=== PATIENT | female | born 1985 | race Caucasian/White ===

== ENCOUNTER 2022-10-20 15:59 | Inpatient (IN) | payer OTHER ==
[~2022-10-20] VITALS: Ht 162.6 cm; Wt 52.9 kg
[2022-10-20] VITALS (13 sets, daily range): BP systolic 109–135; BP diastolic 69–78
[2022-10-20] MEDS ORDERED: ASPirin-EC 81 mg tab PO ONE (16:15)
[2022-10-20] MEDS ORDERED: ASPirin 81 mg TAB ONE (16:19)
[2022-10-20] MEDS ORDERED: LIDOCAINE 2%HCL (LOCAL ANESTH.) INJ 20ML MDV ONE (16:42)
[2022-10-20] MEDS ORDERED: ANGIOMAX 250 MG VIAL IV ONE (16:48)
[2022-10-20] MEDS ORDERED: fentaNYL CITRATE 100 MCG/2 ML VL ONE (16:48)
[2022-10-20] MEDS ORDERED: SODIUM CHL 0.9% 50 ML ONE (16:49)
[2022-10-20] MEDS ORDERED: MIDAZOLAM HCL 2MG/2ML 2ml VIAL (1mg/ml) ONE (16:49)
[2022-10-20 16:53] LABS: Basophils # (auto) 0 10 ^3/uL (0-0.2); Basophils % (auto) 0.3 % (0.0-2.0); Eosinophils # (auto) 0 10 ^3/uL (0-0.8); Eosinophils % (auto) 0.3 % (0.0-7.0); Hemoglobin 13.5 g/dL (12.2-16.2); Lymphocytes # (auto) 1.7 10 ^3/uL (0.4-5.4); Lymphocytes % (auto) 18.6 % (10.0-50.0); Mean Corpuscular Hemoglobin 26.4 pg (28.0-32.0); Mean Corpuscular Volume 80.2 fL (80.0-100.0); Monocytes # (auto) 0.5 10 ^3/uL (0-1.3); Monocytes % (auto) 5.7 % (0.0-12.0); Neutrophils # (auto) 6.9 10 ^3/uL (1.6-8.6); Neutrophils % (auto) 75.1 % (37.0-80.0); Red Blood Cells 5.12 10^6/uL (4.0-5.20); Red Cell Distribution Width 12.6 % (11.8-14.3); White Blood Cell 9.2 10^3/uL (4.4-10.8)
[2022-10-20 16:56] LABS: Calcium 9.2 mg/dL (8.5-10.1); Magnesium 2.2 mg/dL (1.6-2.6); Potassium 3.8 mmol/L (3.5-5.1)
[2022-10-20 17:00] LABS: BUN/Creatinine Ratio 12.7 (10.0-20.0); Bilirubin, Total 1.1 mg/dL (0.2-1.0); Total Protein 7.6 g/dL (6.4-8.2)
[2022-10-20] MEDS ORDERED: VERAPAMIL 2.5MG/ML INJ 2ML VIAL IV ONE (17:01)
[2022-10-20] MEDS ORDERED: HEPARIN SODIUM (PORCINE) 5000 UNITS/ML 1ML VIAL ONE (17:01)
[2022-10-20 17:33] LABS: Cholesterol 137 mg/dL (< 200)
[2022-10-20 17:36] LABS: HDL Cholesterol 43 mg/dL (40-59); LDL Cholesterol 85 mg/dL (< 100); Triglycerides 138 mg/dL (< 150)
[2022-10-20 17:44] LABS: INR 0.99 (0.9-1.15); Partial Thromboplastin Time 24.3 sec (24.6-33.4)
[2022-10-20] MEDS ORDERED: MORPHINE SULFATE INJ 2 MG/ml SYRG IV PRN (17:45)
[2022-10-20] MEDS ORDERED: DOCUSATE SOD 100 MG CAP PO PRN (17:45)
[2022-10-20] MEDS ORDERED: HYDROcodone-ACET 5/325MG TAB PO PRN (17:45)
[2022-10-20] MEDS ORDERED: ONDANSETRON HCL 4 MG/2 ML VIAL IV PRN (17:45)
[2022-10-20] MEDS ORDERED: ACETAMINOPHEN 325 MG TAB PO PRN (17:45)
[2022-10-20] MEDS ORDERED: NITROGLYCERIN 0.4 MG SL TAB SL PRN (17:45)
[2022-10-20] MEDS: SODIUM CHLOR 0.9% PF (SALINE LOCK) 10ML VIAL/SYR IV SCH (23:09)
[2022-10-21 00:26] VITALS: BP 128/66
[2022-10-21 05:00] VITALS: BP 120/63
[2022-10-21] MEDS: SODIUM CHLOR 0.9% PF (SALINE LOCK) 10ML VIAL/SYR IV SCH ×2 (06:00→13:03)
[2022-10-21 06:41] LABS: Basophils # (auto) 0 10 ^3/uL (0-0.2); Eosinophils # (auto) 0 10 ^3/uL (0-0.8); Eosinophils % (auto) 0.6 % (0.0-7.0); Lymphocytes # (auto) 2.3 10 ^3/uL (0.4-5.4); Monocytes # (auto) 0.5 10 ^3/uL (0-1.3); Neutrophils # (auto) 4.6 10 ^3/uL (1.6-8.6); White Blood Cell 7.5 10^3/uL (4.4-10.8)
[2022-10-21 06:43] LABS: Basophils % (auto) 0.3 % (0.0-2.0); Hematocrit 39.9 % (36.0-46.0); Hemoglobin 13.1 g/dL (12.2-16.2); Lymphocytes % (auto) 31.3 % (10.0-50.0); Mean Corpuscular Hemoglobin 26.3 pg (28.0-32.0); Mean Corpuscular Hgb Conc. 32.9 g/dL (32.0-36.0); Monocytes % (auto) 6.9 % (0.0-12.0); Neutrophils % (auto) 60.9 % (37.0-80.0); Red Blood Cells 4.98 10^6/uL (4.0-5.20); Red Cell Distribution Width 12.6 % (11.8-14.3)
[2022-10-21 07:32] LABS: Albumin 3.4 g/dL (3.4-5.0); Calcium 8.3 mg/dL (8.5-10.1); Potassium 3.7 mmol/L (3.5-5.1)
[2022-10-21 07:36] LABS: BUN/Creatinine Ratio 15.3 (10.0-20.0); Bilirubin, Total 1.1 mg/dL (0.2-1.0); Total Protein 7.1 g/dL (6.4-8.2)
[2022-10-21 09:00] VITALS: BP 115/66
[2022-10-21 13:00] VITALS: BP 118/72
[2022-10-24 16:10] LABS: Hepatitis C Antibody Negative (Negative)
== END 2022-10-21 13:45 | disposition home or self-care (01) | DRG 282 ==
LOC: ER 15:59 → EDBD 15:59 → TELE 17:34 → TELE-CENTR 18:41
PROVIDERS: ADMIT Nurse Practitioner Family; ATTEND Internal Medicine
PROC: 4A023N7 Measurement of Cardiac Sampling and Pressure, Left Heart, Percutaneous Approach (ICD-10-PCS; principal; 2022-10-20)
PROC: B2111ZZ Fluoroscopy of Multiple Coronary Arteries using Low Osmolar Contrast (ICD-10-PCS; 2022-10-20)
PROC: B2151ZZ Fluoroscopy of Left Heart using Low Osmolar Contrast (ICD-10-PCS; 2022-10-20)
DX: I21.19 ST elevation (STEMI) myocardial infarction involving other coronary artery of inferior wall (principal); E66.9 Obesity, unspecified; R00.1 Bradycardia, unspecified; F41.9 Anxiety disorder, unspecified; Z68.20 Body mass index [BMI] 20.0-20.9, adult; G43.909 Migraine, unspecified, not intractable, without status migrainosus; Z90.49 Acquired absence of other specified parts of digestive tract; F12.90 Cannabis use, unspecified, uncomplicated
CPT/HCPCS: 36415; 71045; 80053; 80061; 83036; 83735; 83880; 84443; 84484; 84702; 85025; 85610; 85730; 86803; 86850; 86900; 86901; 87340; 93005; 93306; 93458; 99152; 99153; 99291; G0378; J2250

== ENCOUNTER 2023-04-27 14:44 | Emergency (ER) | payer OTHER ==
[~2023-04-27] VITALS: Ht 165.1 cm; Wt 90.0 kg
[2023-04-27 15:26] LABS: Basophils # (auto) 0 10 ^3/uL (0-0.2); Basophils % (auto) 0.2 % (0.0-2.0); Eosinophils # (auto) 0 10 ^3/uL (0-0.8); Eosinophils % (auto) 0.4 % (0.0-7.0); Hemoglobin 13.4 g/dL (12.2-16.2); Mean Corpuscular Volume 80.2 fL (80.0-100.0); Monocytes # (auto) 0.4 10 ^3/uL (0-1.3); Neutrophils # (auto) 4.2 10 ^3/uL (1.6-8.6); Nucleated Red Blood Cells % 0.1 %
[2023-04-27 15:28] LABS: Hematocrit 40.2 % (36.0-46.0); Lymphocytes # (auto) 1.7 10 ^3/uL (0.4-5.4); Lymphocytes % (auto) 26.1 % (10.0-50.0); Mean Corpuscular Hemoglobin 26.8 pg (28.0-32.0); Mean Corpuscular Hgb Conc. 33.3 g/dL (32.0-36.0); Neutrophils % (auto) 66.3 % (37.0-80.0); Red Blood Cells 5.02 10^6/uL (4.0-5.20); Red Cell Distribution Width 12.8 % (11.8-14.3); White Blood Cell 6.3 10^3/uL (4.4-10.8)
[2023-04-27 15:44] LABS: Urine Bacteria FEW /hpf (None Seen); Urine Blood Negative /uL (Negative); Urine Clarity HAZY (Clear); Urine Color Yellow (Yellow); Urine Mucus MODERATE (None Seen); Urine Protein, UAD 1+ (Negative); Urine Specific Gravity 1.036 (1.001-1.035); Urine WBC 6 /hpf (0 - 5)
[2023-04-27 15:46] LABS: Alanine Aminotransferase 782 U/L (7-40); Albumin 4.7 g/dL (3.2-4.8); Alkaline Phosphatase 97 U/L (46-116); Anion Gap 4 (5-15); Aspartate Aminotransferase 854 U/L (13-40); BUN/Creatinine Ratio 11.3 (10.0-20.0); Blood Urea Nitrogen 9 mg/dL (9-23); Calcium 9.1 mg/dL (8.7-10.4); Carbon Dioxide 26 mmol/L (20-30); Chloride 111 mmol/L (98-107); Glucose 96 mg/dL (74-106); Lipase 62 U/L (12-53); Potassium 4.1 mmol/L (3.5-5.1); Sodium 141 mmol/L (136-145)
[2023-04-27 15:47] LABS: Bilirubin, Total 3.2 mg/dL (0.2-1.0); Total Protein 7.3 g/dL (5.7-8.2)
[2023-04-27] MEDS ORDERED: ONDANSETRON HCL 4 MG/2 ML VIAL IV ONE (16:15)
[2023-04-27] MEDS ORDERED: cefTRIAXone 1GM/50ML D5W 50 ML IV ONE (16:15)
[2023-04-27] MEDS ORDERED: SODIUM CHLORIDE 0.9% 1,000 ML IV ONE ×2 (16:15→22:00)
[2023-04-27] MEDS ORDERED: IOHEXOL 300 MG/ML 100ML BOTTLE IJ ONE (16:15)
[2023-04-27 18:30] VITALS: PULSE 49; RESP 12; O2SAT 98
[2023-04-27] MEDS ORDERED: metroNIDAZOLE 500MG/100ML 100 ML IV ONE (18:30)
[2023-04-27 19:30] LABS: COVID19 ANTIGEN SOFIA FIA NEGATIVE (NEGATIVE)
[2023-04-27 20:00] VITALS: PULSE 52; RESP 10; O2SAT 98
[2023-04-27] MEDS ORDERED: MORPHINE SULFATE INJ 2 MG/ml SYRG IV PRN (20:15)
[2023-04-27] MEDS ORDERED: NITROGLYCERIN 0.4 MG SL TAB SL PRN (20:15)
[2023-04-27] MEDS ORDERED: DOCUSATE SOD 100 MG CAP PO PRN (20:15)
[2023-04-27] MEDS ORDERED: traMADol HCL 50 MG TAB PO PRN (20:15)
[2023-04-27] MEDS ORDERED: ONDANSETRON HCL 4 MG/2 ML VIAL IV PRN (20:15)
[2023-04-27 21:17] LABS: INR 1.04 (0.9-1.15); Partial Thromboplastin Time 25.4 SEC (24.5-34.5); Prothrombin Time 10.9 sec (9.3-11.8)
[2023-04-27] MEDS ORDERED: metroNIDAZOLE 500MG/100ML 100 ML IV SCH (22:00)
[2023-04-27] MEDS: ONDANSETRON HCL 4 MG/2 ML VIAL IV PRN (22:06)
[2023-04-28] MEDS: SODIUM CHLORIDE 0.9% 1,000 ML IV SCH ×3 (01:34→15:58)
[2023-04-28] MEDS: metroNIDAZOLE 500MG/100ML 100 ML IV SCH ×3 (03:19→19:07)
[2023-04-28 04:54] LABS: Triglycerides 51 mg/dL (< 150)
[2023-04-28 04:55] LABS: LDL Cholesterol 48 mg/dL (< 100)
[2023-04-28 04:56] LABS: Cholesterol 102 mg/dL (< 200); HDL Cholesterol 38 mg/dL (40-59)
[2023-04-28] MEDS ORDERED: cefTRIAXone 1GM/50ML D5W 50 ML IV SCH (09:00)
[2023-04-28 20:00] VITALS: PULSE 50; RESP 12; O2SAT 98
[2023-04-29] MEDS: SODIUM CHLORIDE 0.9% 1,000 ML IV SCH (01:15)
[2023-04-29] MEDS ORDERED: LORazepam 2MG/ML-1ML VIAL IV ONE (02:00)
[2023-04-29] MEDS: metroNIDAZOLE 500MG/100ML 100 ML IV SCH (02:52)
[2023-04-29 03:30] VITALS: BP 129/72; PULSE 51; RESP 20; TEMP 98.1; O2SAT 97
[2023-04-29] MEDS: ONDANSETRON HCL 4 MG/2 ML VIAL IV PRN (03:51)
[2023-05-01 10:45] LABS: Hepatitis B Surface Antigen Negative (Negative)
[2023-05-01 11:05] LABS: Hepatitis A Ab IgM Negative
[2023-05-01 11:06] LABS: Hepatitis B Core IgM Negative; Hepatitis C Antibody Negative (Negative)
== END 2023-04-29 03:55 | disposition short-term general hospital (02) ==
LOC: ER 14:44
DX: R79.89 Other specified abnormal findings of blood chemistry (principal); R10.2 Pelvic and perineal pain; R91.1 Solitary pulmonary nodule; R10.11 Right upper quadrant pain; F41.9 Anxiety disorder, unspecified; Z98.890 Other specified postprocedural states; Z20.822 Contact with and (suspected) exposure to COVID-19
CPT/HCPCS: 36415; 74177; 74181; 76705; 80053; 80061; 80074; 81001; 81025; 83605; 83690; 84443; 84702; 85025; 85610; 85730; 86850; 86900; 86901; 87426; 96361; 96365; 96366; 96367; 96375; 99285; J0696; J2060; J2405; J3490; J7030; Q9967; 99291